=== PATIENT | male | born 1965 | race Hispanic/Latino ===

== ENCOUNTER 2017-02-27 10:07 | Emergency (ER) | payer OTHER ==
[2017-02-27 10:14] VITALS: BP 157/74; PULSE 87; TEMP 97; O2SAT 99
[2017-02-27 10:27] VITALS: RESP 16
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
== END 2017-02-27 11:25 | disposition home or self-care (01) ==
LOC: H.ER 10:07
DX: S05.92XA Unspecified injury of left eye and orbit, initial encounter (principal); Y92.89 Other specified places as the place of occurrence of the external cause; F20.9 Schizophrenia, unspecified; F31.9 Bipolar disorder, unspecified; Z77.098 Contact with and (suspected) exposure to other hazardous, chiefly nonmedicinal, chemicals; Z79.82 Long term (current) use of aspirin; Z79.84 Long term (current) use of oral hypoglycemic drugs

== ENCOUNTER 2018-04-24 10:18 | Emergency (ER) | payer MEDICAID, OTHER ==
[2018-04-24 10:19] VITALS: BMI 36.9
[2018-04-24 10:38] VITALS: RESP 18; O2SAT 98
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
[2018-04-24] MEDS ORDERED: Tdap Vaccine 0.5 ml Vial (10-64 yrs) IM ONE (11:24)
[2018-04-24 11:39] VITALS: BP 135/93; TEMP 98.4
[2018-04-24 11:42] VITALS: PULSE 105
== END 2018-04-24 11:37 | disposition home or self-care (01) ==
LOC: H.ER 10:18
DX: K13.79 Other lesions of oral mucosa (principal); J00 Acute nasopharyngitis [common cold]; E11.9 Type 2 diabetes mellitus without complications; Z86.59 Personal history of other mental and behavioral disorders; I10 Essential (primary) hypertension; Z79.84 Long term (current) use of oral hypoglycemic drugs; Z79.82 Long term (current) use of aspirin; Y04.0XXA Assault by unarmed brawl or fight, initial encounter; Z23 Encounter for immunization